=== PATIENT | female | born 1930 | race Caucasian/White ===

== ENCOUNTER 2017-06-13 13:46 | Emergency (ER) | payer OTHER ==
[~2017-06-13] VITALS: Ht 165.1 cm; Wt 65.8 kg
--- NOTE | 2017-06-13 13:52 | NUR ---
katie from home dt left hip pain sp fall 2 days ago. Patient is aao4. Appears in no apparent distress.Respiration even and unlabored. Skin is warm to touch. Pt is ambulatory. vss
--- NOTE | 2017-06-13 14:56 | NUR ---
Patient discharged to home in stable condition. Written and verbal after care instructions given. Patient verbalizes understanding of instruction.
[2017-06-13 14:57] VITALS: BP 124/64
== END 2017-06-13 15:13 | disposition home or self-care (01) ==
LOC: ER 13:47
DX: S30.1XXA Contusion of abdominal wall, initial encounter (principal); S00.81XA Abrasion of other part of head, initial encounter; I10 Essential (primary) hypertension; I25.2 Old myocardial infarction; W18.39XA Other fall on same level, initial encounter; Y93.89 Activity, other specified; Y92.89 Other specified places as the place of occurrence of the external cause; Y99.9 Unspecified external cause status
CPT/HCPCS: 99283; A4606; Z7610

== ENCOUNTER 2018-01-15 20:53 | Emergency (ER) | payer OTHER ==
[~2018-01-15] VITALS: Ht 170.2 cm; Wt 59.0 kg
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
[2018-01-15] MEDS ORDERED: ACETAMINOPHEN ES 500 MG TABLET PO ONE (22:00)
[2018-01-15] MEDS ORDERED: ACETAMINOPHEN ES 500 MG TABLET ONE (22:30)
--- NOTE | 2018-01-15 23:30 | NUR ---
CALLED [facility], PRESENTED PT, AWAITING CALLBACK FROM [facility]
--- NOTE | 2018-01-15 23:59 | NUR ---
[facility] ETA [id number]
--- NOTE | 2018-01-16 01:08 | NUR ---
report given to [facility].
[2018-01-16 01:10] VITALS: BP 149/70
== END 2018-01-16 01:11 | disposition home or self-care (01) ==
LOC: ER 20:55
DX: S52.591A Other fractures of lower end of right radius, initial encounter for closed fracture (principal); I10 Essential (primary) hypertension; I25.2 Old myocardial infarction; Z60.2 Problems related to living alone; W18.39XA Other fall on same level, initial encounter; Y93.89 Activity, other specified; Y92.89 Other specified places as the place of occurrence of the external cause; Y99.8 Other external cause status
CPT/HCPCS: 73110; A4606; Z7610